=== PATIENT | female | born 1950 | race Caucasian/White ===

== ENCOUNTER 2017-02-22 16:12 | Emergency (ER) | payer OTHER, MEDICARE ==
--- NOTE | 2017-02-22 17:04 | EDPHY ---
H & P Stated Complaint: Dog bite to right index finger. Time Seen by Provider: 02/22/17 17:03 HPI/ROS: HPI: This is a 66-year-old female presents with Chief Complaint: Dog bite to right index finger. Location: Right index finger Quality: Dog bite Duration: Prior to arrival Signs and Symptoms: + bleeding, no radiation, no numbness, no weakness, no tingling, no decreased range of motion Timing: Acute Severity: Moderate Context: Patient reports that her neighbor of 8 years dog which is a [place] retriever is old and bit her on the right index finger prior to arrival. The dog is up-to-date on its immunizations. Patient is unsure of her last tetanus exam. Right-hand dominant. Patient noticed a pretty large cut with moderate bleeding that would not stop with direct pressure so came to the ER for further evaluation and treatment. Denies paresthesias/numbness/ decreased range of motion. Patient is leaving out of the country [place] on a trip on Wednesday. Modifying Factors: Direct pressure Comment: ROS: see HPI Constitutional: No fever, no chills, no weight loss Eyes: No blurred vision Respiratory: No shortness of breath, no cough Cardiovascular: No chest pain Gastrointestinal: No nausea, no vomiting no diarrhea Genitourinary: No dysuria Extremities: No myalgias Neurologic: No weakness, no numbness Skin: No rashes Hematologic: No bruising, no bleeding MEDICAL/SURGICAL/SOCIAL HISTORY: Medical history: Hypertension Surgical history: Denies Social history: CONSTITUTIONAL: Pleasant elderly white female who appears younger than stated age, awake and alert, no obvious distress HEENT: Atraumatic and normocephalic, PERRL, EOMI. Tympanic membranes clear. Oropharynx clear, no exudate and moist pink mucosa. Airway patent. No lymphadenopathy. No meningismus. Cardiovascular: Normal S1/S2, regular rate, regular rhythm, without murmur rub or gallop. PULMONARY/CHEST: Symmetrical and nontender. Clear to auscultation bilaterally. Good air movement. No accessory muscle usage. ABDOMEN: Soft, nondistended, nontender, no rebound, no guarding, no peritoneal signs, no masses or organomegaly. No CVAT. EXTREMITIES: 2/2 pulses, right index finger inferior to the MCP joint 2 cm v- shaped simple laceration noted; DIP/PIP flexion extension intact. Light touch sensation intact. no deformities, no clubbing, no cyanosis or edema. NEUROLOGICAL: no focal neuro deficits. GCS 15. SKIN: Warm and dry, no erythema. no rash. Good capillary refill. Source: Patient Exam Limitations: No limitations - Personal History Current Tetanus Diphtheria and Acellular Pertussis (TDAP): No - Medical/Surgical History Hx Asthma: No Hx Chronic Respiratory Disease: No Hx Diabetes: No Hx Cardiac Disease: No Hx Renal Disease: No Hx Cirrhosis: No Hx Alcoholism: No Hx HIV/AIDS: No Hx Splenectomy or Spleen Trauma: No Other PMH: Htn - Social History Smoking Status: Never smoked Constitutional: Initial Vital Signs Temperature (C) 36.5 C 02/22/17 16:14 Heart Rate 87 02/22/17 16:14 Respiratory Rate 18 02/22/17 16:14 Blood Pressure 148/90 H 02/22/17 16:14 O2 Sat (%) 97 02/22/17 16:14 O2 Delivery Mode Room Air Allergies/Adverse Reactions: Penicillins Allergy (Verified 02/22/17 16:18) Home Medications: Medication Instructions Recorded ASPIRIN 02/22/17 Doxycycline Hyclate 100 mg PO BID 14 Days #28 tablet 02/22/17 Medical Decision Making Procedures: Procedure: Laceration repair. Verbal consent was obtained from the patient. The [ ] laceration on the [ ] was anesthetized in the usual fashion. The wound was irrigated, draped and explored to its base with a gloved finger. There were no deep structures involved. No tendon injury was identified. The wound was repaired loosely with # 7, 6 0 Prolene in simple interrupted pattern. Xeroform, gauze and finger splint applied. The procedure was performed by myself. Procedure: Splint placement. A right index finger splint was applied by the Emergency Room hazmat technician. After application of the splint I returned and re-examined the patient. The splint was adequately immobilizing the joint and distal to the splint the patient's circulation and sensation was intact. ED Course/Re-evaluation: Wound irrigated thoroughly Tetanus booster given Penicillin allergic so gave doxycycline 100 mg p.o. daily times 14 days Patient is leaving the country in 2 days; so loose approximation with 6-0 Prolene sutures. Animal control notified - they will F/U tomorrow with PT. Rabies prophylaxis is not indicated Differential Diagnosis: Differential diagnosis includes contusion, laceration, tendon injury, nerve injury. Departure - Departure Disposition: Home, Routine, Self-Care Clinical Impression: Dog bite of index finger Qualifiers: Encounter type: initial encounter Qualified Code(s): S61.258A - Open bite of other finger without damage to nail, initial encounter; W54.0XXA - Bitten by dog , initial encounter; W54.0XXA - Bitten by dog, initial encounter Finger laceration Qualifiers: Encounter type: initial encounter Finger: index finger Damage to nail status: without damage Foreign body presence: without foreign body Laterality: right Qualified Code(s): S61.210A - Laceration without foreign body of right index finger without damage to nail, initial encounter Condition: Good Instructions: Animal Bite (ED), Care For Your Stitches (ED) Additional Instructions: Keep the dressing/splint in place for 48 hours. After 48 hours, you may remove the dressing; wash the site daily with mild soap and water; then pat dry. Apply ice for 30 minutes at a time; 2-3 times per day for the next 1-2 days. Sutures will need to be removed in 7-10 days. Please take all antibiotics as directed until complete. Referrals: Derrek Machado MD [Primary Care Provider] - As per Instructions Prescriptions: Doxycycline Hyclate 100 mg PO BID 14 Days #28 tablet
[2017-02-22] MEDS ORDERED: DOXYCYCLINE HYCLATE 100 MG CAP/TAB PO ONE (17:34)
[2017-02-22] MEDS ORDERED: TDAP ADULT 0.5 ML INJ (BOOSTRIX) IM ONE (17:39)
[2017-02-22 18:56] VITALS: BP 136/81; PULSE 78; RESP 16; TEMP 98.2; O2SAT 98
== END 2017-02-22 18:54 | disposition home or self-care (01) ==
PROC: 0HQFXZZ Repair Right Hand Skin, External Approach (ICD-10-PCS; principal; 2017-02-22)
DX: S61.258A Open bite of other finger without damage to nail, initial encounter (principal); I10 Essential (primary) hypertension; Z23 Encounter for immunization; Z79.82 Long term (current) use of aspirin; W54.0XXA Bitten by dog, initial encounter; Y99.8 Other external cause status; Y93.89 Activity, other specified
CPT/HCPCS: 12001; 90471; 90715; 99283; L3925